=== PATIENT | female | born 1995 | race African-American/Black ===

== ENCOUNTER → 2021-06-25 | Outpatient (CLI) | payer OTHER | LOC: SJCVCIMAG 06:59 | PROVIDERS: ATTEND Internal Medicine Cardiovascular Disease | DX: I37.1 Nonrheumatic pulmonary valve insufficiency (principal); I10 Essential (primary) hypertension; R94.31 Abnormal electrocardiogram [ECG] [EKG]; I47.1 Supraventricular tachycardia ==